=== PATIENT | female | born 1995 | race Caucasian/White ===

== ENCOUNTER 2020-02-07 16:38 | Inpatient (IN) | payer OTHER ==
[~2020-02-07] VITALS: Ht 165.1 cm; Wt 93.0 kg
[2020-02-07] MEDS ORDERED: NON FORMULARY PATIENT HOME MED XX SCH ×2 (17:15)
[2020-02-07] MEDS ORDERED: IBUPROFEN 800MG TABLET PO PRN (17:15)
[2020-02-07] MEDS ORDERED: MISOPROSTOL 100MCG TABLET VG NR (17:15)
[2020-02-07] MEDS ORDERED: OXYTOCIN 10 UNITS/ML 1ML IM SCH (17:30)
[2020-02-07] MEDS ORDERED: PREN1TAB78 MT (17:42)
[2020-02-07] MEDS ORDERED: FERR325T6 MT (17:42)
[2020-02-07] MEDS ORDERED: DEXT 5%/LR + PITOCIN 20UNITS/L 1,000 ML IV SCH (17:53)
[2020-02-07] MEDS ORDERED: LANOLIN OINT 7GM TUBE TOP PRN (18:00)
[2020-02-07] MEDS ORDERED: METHYLERGONOVINE MALEATE 0.2 MG/ML IM PRN (18:00)
[2020-02-07] MEDS ORDERED: RHO(D) IMMUNE GLOBULIN 300 MCG/SYR IM PRN (18:00)
[2020-02-07] MEDS ORDERED: IBUPROFEN 400MG TABLET PO PRN (18:00)
[2020-02-07 19:35] LABS: HEMATOCRIT. 36.3 % (36.0-48.0); HEMOGLOBIN. 11.7 g/dL (12.0-16.0); MEAN CORPUSCULAR HEMOGLOBIN 27.8 pg (28.0-32.0); MEAN PLATELET VOLUME 10.5 fl (7.4-10.4); PLATELET 232 x1000/uL (130-400); RED BLOOD CELL COUNT 4.22 mill/uL (4.2-5.4); RED CELL DISTRIBUTION WIDTH 15.4 % (11.6-14.6)
[2020-02-07 19:46] LABS: INR 0.9; PARTIAL THROMBOPLASTIN TIME 26.9 sec (23.4-31.0); PROTHROMBIN TIME 10.1 sec (9.6-11.0)
[2020-02-07 20:30] VITALS: BP 117/60
[2020-02-07 20:45] LABS: PLATELET ESTIMATE NORMAL
[2020-02-07 20:55] LABS: HEPATITIS B SURFACE ANTIGEN NEGATIVE
[2020-02-07 21:00] VITALS: BP 111/65
[2020-02-07 21:24] LABS: CLARITY URINE CLOUDY (CLEAR); COLOR URINE ORANGE (YELLOW); KETONES URINE 1+ (NEGATIVE); LEUKOCYTE ESTERASE URINE 1+ (NEGATIVE); NITRITE URINE NEGATIVE (NEGATIVE); OCCULT BLOOD URINE 3+ (NEGATIVE); PH URINE 5.5 (4.5-8.0); PROTEIN URINE 2+ (NEGATIVE); SPECIFIC GRAVITY URINE 1.028 (1.005-1.030)
[2020-02-07 21:30] VITALS: BP 116/72
[2020-02-07 21:46] LABS: *AMPHETAMINES SCREEN URINE NEGATIVE (NEGATIVE); *BARBITURATES SCREEN URINE NEGATIVE (NEGATIVE); *BENZODIAZEPINES SCREEN URINE NEGATIVE (NEGATIVE); *COCAINE SCREEN URINE NEGATIVE (NEGATIVE)
[2020-02-07 21:47] LABS: CANNABINOID URINE SCREEN NEGATIVE (NEGATIVE); METHADONE URINE SCREEN NEGATIVE (NEGATIVE); OPIATES URINE SCREEN NEGATIVE (NEGATIVE); PHENCYCLIDINE URINE SCREEN NEGATIVE (NEGATIVE)
[2020-02-08] MEDS: IBUPROFEN 800MG TABLET PO PRN ×3 (03:43→20:54)
[2020-02-08 04:00] VITALS: BP 135/135
[2020-02-08 05:55] LABS: BASOPHILS % 0.4 % (0.0-2.0); EOSINOPHILS % 0.4 % (0.0-5.0); HEMATOCRIT. 30.4 % (36.0-48.0); HEMOGLOBIN. 10.2 g/dL (12.0-16.0); LYMPHOCYTES % 19.1 % (20.0-50.0); MEAN CORPUSCULAR HEMOGLOBIN 28.6 pg (28.0-32.0); MEAN CORPUSCULAR VOLUME 85.2 fL (81.0-99.0); MEAN PLATELET VOLUME 10.5 fl (7.4-10.4); MONOCYTES % 6.4 % (2.0-8.0); NEUTROPHILS % 73.7 % (40.0-76.0); PLATELET 198 x1000/uL (130-400); RED BLOOD CELL COUNT 3.57 mill/uL (4.2-5.4); RED CELL DISTRIBUTION WIDTH 14.8 % (11.6-14.6)
[2020-02-08 08:02] VITALS: BP 105/56
[2020-02-08] MEDS: PRENATAL VIT/FE FUMARATE/FA TABLET PO SCH (09:00)
[2020-02-08 14:27] VITALS: BP 110/60
[2020-02-08 21:00] VITALS: BP 110/72
[2020-02-09 04:25] VITALS: BP 112/68
[2020-02-09 08:00] VITALS: BP 113/78
[2020-02-09] MEDS: PRENATAL VIT/FE FUMARATE/FA TABLET PO SCH (08:40)
[2020-02-09] MEDS: IBUPROFEN 800MG TABLET PO PRN (08:41)
== END 2020-02-09 12:00 | disposition home or self-care (01) | DRG 776 ==
LOC: OBSVTOIN 16:38 → 8 EST LDRP 16:38 → 8EST 20:15
PROVIDERS: ADMIT Obstetrics & Gynecology; ATTEND Obstetrics & Gynecology
DX: O99.03 Anemia complicating the puerperium (principal); D62 Acute posthemorrhagic anemia
CPT/HCPCS: 36415; 80305; 81003; 85025; 86592; 86703; 86762; 86850; 86900; 87340; 99281; J2590